=== PATIENT | female | born 1970 | race Two or more races ===

== ENCOUNTER 2017-10-09 22:26 | Emergency (ER) | payer OTHER ==
[~2017-10-09] VITALS: Ht 157.5 cm; Wt 45.4 kg
--- NOTE | 2017-10-09 22:40 | NUR ---
LEFT UPPER ARM PAIN S/P GLF. NO IMMEDIATE SIGNS OF DISTRESS NOTED. PT VITAL SIGNS STABLE. NO OBVIOUS SIGNS OF DEFORMITY NOTED. +CMS. WILL CONT TO MONITOR PT.
[2017-10-10] MEDS ORDERED: ACETAMINOPHEN 325 MG TABLET PO ONE (00:30)
[2017-10-10] MEDS ORDERED: ACETAMINOPHEN ES 500 MG TABLET ONE (00:35)
--- NOTE | 2017-10-10 03:33 | NUR ---
PT OK TO DISCHARGE PER DR QUILES. Patient discharged to home in stable condition. Written and verbal after care instructions given. Patient verbalizes understanding of instruction.Patient is awake and alert to self, day, and place. PT ambulatory with a steady gait
[2017-10-10 03:42] VITALS: BP 145/92
== END 2017-10-10 03:43 | disposition home or self-care (01) ==
LOC: ER 22:28
DX: S52.602A Unspecified fracture of lower end of left ulna, initial encounter for closed fracture (principal); L40.9 Psoriasis, unspecified; F10.10 Alcohol abuse, uncomplicated; W18.39XA Other fall on same level, initial encounter; Y93.89 Activity, other specified; Y92.89 Other specified places as the place of occurrence of the external cause; Y99.8 Other external cause status
CPT/HCPCS: 29125; 73060; 73090; 73130; 99284; A4606; Z7610